=== PATIENT | male | born 1990 | race Caucasian/White ===

== ENCOUNTER 2021-04-07 09:08 | Day surgery (SDC) | payer OTHER ==
[~2021-04-07] VITALS: Ht 188 cm; Wt 85.2 kg
[~2021-04-07 09:08] MED LIST: BUPIVACAINE/PF 0.25% ONE; EPINEPHRINE 1 MG/ML, 1ML ONE
[2021-04-07] MEDS ORDERED: NONE PER PT (09:52)
[2021-04-07] MEDS ORDERED: MIDAZOLAM 1 MG/ML, 2ML ONE (09:53)
[2021-04-07] MEDS ORDERED: FENTANYL PF 100 MCG/2ML ONE (09:53)
[2021-04-07] MEDS ORDERED: CHLORHEXIDINE 15 ML UDC PO ONE (10:00)
[2021-04-07] MEDS ORDERED: LACTATED RINGERS 1,000 ML IV SCH (10:00)
[2021-04-07 10:26] VITALS: BP 122/80
[2021-04-07] MEDS ORDERED: MEPERIDINE/PF 25MG/0.5ML IVPush PRN ×2 (12:00)
[2021-04-07] MEDS ORDERED: ACETAMINOPHEN 325 MG TABLET PO PRN ×2 (12:00)
[2021-04-07] MEDS ORDERED: DIAZEPAM 5 MG/ML, 2ML IVPush PRN ×2 (12:00)
[2021-04-07] MEDS ORDERED: HYDROmorphone 2 MG/ML, 1ML IVPush PRN ×2 (12:00)
[2021-04-07] MEDS ORDERED: KETOROLAC 30 MG/1 ML IV PRN ×2 (12:00)
[2021-04-07] MEDS ORDERED: LABETALOL 5MG/ML, 20ML IV PRN ×2 (12:00)
[2021-04-07] MEDS ORDERED: FENTANYL PF 100 MCG/2ML IV PRN ×2 (12:00)
[2021-04-07] MEDS ORDERED: hydrALAzine 20 MG/ML, 1ML IV PRN ×2 (12:00)
[2021-04-07] MEDS ORDERED: ALBUTEROL SULFATE 2.5 MG/3 ML NPPB PRN ×2 (12:00)
[2021-04-07] MEDS ORDERED: OXYcodone 5 MG/5 ML ORAL.SOL UDC PO PRN ×2 (12:00)
[2021-04-07] MEDS ORDERED: PROMETHAZINE 25 MG/ML, 1ML IV PRN ×2 (12:00)
[2021-04-07] MEDS ORDERED: DEXAMETHASONE 4 MG/ML, 1ML ONE (12:51)
[2021-04-07] MEDS ORDERED: GLYCOPYRROLATE 0.2MG/1ML, 5ML ONE (12:51)
[2021-04-07] MEDS ORDERED: NEOSTIGMINE 1 MG/ML, 10ML ONE (12:51)
[2021-04-07] MEDS ORDERED: ROCURONIUM 10MG/ML,5ML ONE (12:51)
[2021-04-07] MEDS ORDERED: ONDANSETRON 2MG/ML, 2ML ONE (12:51)
[2021-04-07] MEDS ORDERED: CEFAZOLIN 1,000 MG ONE (12:51)
[2021-04-07] MEDS ORDERED: SUCCINYLCHOLINE 20 MG/ML, 10ML ONE (12:51)
[2021-04-07] MEDS ORDERED: PROPOFOL 10 MG/ML, 20ML ONE (12:51)
[2021-04-07] MEDS ORDERED: PROMETHAZINE 25 MG/ML, 1ML ONE (12:56)
== END 2021-04-07 15:15 | disposition home or self-care (01) ==
LOC: OUT 09:08
PROVIDERS: ATTEND Orthopaedic Surgery
DX: M24.411 Recurrent dislocation, right shoulder (principal); M24.111 Other articular cartilage disorders, right shoulder; M25.511 Pain in right shoulder; M75.101 Unspecified rotator cuff tear or rupture of right shoulder, not specified as traumatic; M25.311 Other instability, right shoulder; Z72.89 Other problems related to lifestyle; Z20.822 Contact with and (suspected) exposure to COVID-19
CPT/HCPCS: 29806; 29822; 87635; C1713; J0330; J0690; J1100; J2250; J2405; J2550; J2704; J2710; J3010; J7120; J0171